=== PATIENT | male | born 1950 | race Caucasian/White ===

== ENCOUNTER 2021-02-04 06:57 | Emergency (ER) | payer MEDICARE ==
[~2021-02-04] VITALS: Ht 177.8 cm; Wt 123.0 kg
[2021-02-04] MEDS ORDERED: COLCHICINE0.6 M2 PO (08:46)
[2021-02-04] MEDS ORDERED: HYDROCO/APAP1 TA9 PO (08:48)
[2021-02-04 08:55] VITALS: BP 166/79
[2021-02-04] MEDS ORDERED: AMLODIPINE BESYL5 MG PO (08:59)
== END 2021-02-04 08:55 | disposition home or self-care (01) ==
LOC: ED 06:57
DX: M10.072 Idiopathic gout, left ankle and foot (principal); I10 Essential (primary) hypertension; E66.9 Obesity, unspecified; M10.9 Gout, unspecified